=== PATIENT | female | born 1985 | race Caucasian/White ===

== ENCOUNTER 2022-07-04 09:18 | Emergency (ER) | payer OTHER, BC, MEDICAID ==
[~2022-07-04] VITALS: Ht 162.6 cm; Wt 63.5 kg
[~2022-07-04 09:18] MED LIST: IBUP-2077 PO; PREN1TAB80 PO
[2022-07-04 09:47] LABS: BASOPHILS % (AUTO) 1.1 % (0.0-5.0); EOSINOPHILS % (AUTO) 1.1 % (0.0-8.0); HEMATOCRIT 36.3 % (36-48); MEAN CORPUSCULAR HEMOGLOBIN 31.5 pg (27.0-33.0); MEAN CORPUSCULAR HGB CONC 33.3 g/dL (32.0-36.0); MEAN CORPUSCULAR VOLUME 94.5 fL (79-99); MONOCYTES % (AUTO) 7.1 % (3.0-13.0); NEUTROPHILS % (AUTO) 55.4 % (40.0-77.0); PLATELET COUNT (AUTO) 318 K/uL (130-400); RED BLOOD CELL COUNT(AUTO) 3.84 MIL/uL (4.00-5.50); RED CELL DISTRIBUTION WIDTH 12.6 % (11.0-15.5); WHITE BLOOD COUNT (AUTO) 6.5 K/uL (4.8-10.8)
[2022-07-04 09:57] LABS: CREATININE 0.7 mg/dL (0.5-1.5); POTASSIUM 4.4 mmol/L (3.5-5.1)
[2022-07-04 10:01] LABS: APPEARANCE,URINE CLEAR (CLEAR); BILIRUBIN,URINE NEGATIVE (NEGATIVE); COLOR,URINE LIGHT-YELLOW (YELLOW); GLUCOSE, URINE (UA) NEGATIVE (NEGATIVE); KETONES,URINE NEGATIVE (NEGATIVE); LEUKOCYTE ESTERASE ,URINE NEGATIVE Leu/uL (NEGATIVE); NITRATE,URINE NEGATIVE (NEGATIVE); OCCULT BLOOD,URINE LARGE (NEGATIVE); PH,URINE 5.5 (5.0-8.0); PROTEIN,URINE NEGATIVE (NEGATIVE); UROBILINOGEN,URINE 0.2 mg/dL (0.2-1.0)
[2022-07-04 10:01] LABS: ALBUMIN 3.6 g/dL (3.5-5.0); TOTAL PROTEIN, SERUM 7.2 g/dL (6.0-8.3)
[2022-07-04 10:06] LABS: HCG,QUALITATIVE URINE NEGATIVE (NEGATIVE)
[2022-07-04 10:17] LABS: BACTERIA,URINE RARE /HPF (None Seen); MUCUS,URINE RARE LPF (None Seen); RBC,URINE TNTC /HPF (0-1); SQUAMOUS EPITHELIAL CELL,UR RARE /HPF (0-2)
[2022-07-04] MEDS ORDERED: MEDR10TA PO (12:04)
[2022-07-04 12:14] VITALS: BP 132/91
== END 2022-07-04 12:15 | disposition home or self-care (01) ==
LOC: EDH 09:18
DX: N93.8 Other specified abnormal uterine and vaginal bleeding (principal); N83.201 Unspecified ovarian cyst, right side; Z90.89 Acquired absence of other organs; Z98.890 Other specified postprocedural states; Z88.8 Allergy status to other drugs, medicaments and biological substances
CPT/HCPCS: 36415; 76856; 80053; 81001; 81025; 85025; 87088

== ENCOUNTER 2024-04-09 14:31 | Emergency (ER) | payer BC, MEDICAID, OTHER ==
[~2024-04-09] VITALS: Ht 162.6 cm; Wt 63.5 kg
[~2024-04-09 14:31] MED LIST changes: +MEDR10TA PO
[2024-04-09] MEDS: dexaMETHasone SOD PHOSPHATE 4 MG/ML 1ML VIAL IM ONE (16:09)
[2024-04-09] MEDS: DiphenhydrAMINE HCL 25 MG CAPSULE PO ONE (16:09)
[2024-04-09] MEDS: FAMOTIDINE 20MG TAB PO ONE (16:09)
[2024-04-09 16:32] LABS: BASOPHILS # (AUTO) 0.08 K/uL (0.00-0.20); EOSINOPHILS # (AUTO) 0.12 K/uL (0.00-0.70); EOSINOPHILS % (AUTO) 1.6 % (0.0-8.0); HEMATOCRIT 37.7 % (36-48); IMMATURE GRANULOCYTE ABSOLUTE 0.02 K/uL (0-1); LYMPHOCYTES # (AUTO) 2.2 K/uL (1.0-4.8); LYMPHOCYTES % (AUTO) 28.2 % (21.0-51.0); MEAN CORPUSCULAR HEMOGLOBIN 26.7 pg (27.0-33.0); MEAN CORPUSCULAR HGB CONC 32.1 g/dL (32.0-36.0); MEAN CORPUSCULAR VOLUME 83.2 fL (79-99); MONOCYTES # (AUTO) 0.7 K/uL (0.1-1.0); MONOCYTES % (AUTO) 8.8 % (3.0-13.0); NEUTROPHILS # (AUTO) 4.6 K/uL (1.8-7.7); NEUTROPHILS % (AUTO) 60.1 % (40.0-77.0); PLATELET COUNT (AUTO) 375 K/uL (130-400); RED BLOOD CELL COUNT(AUTO) 4.53 MIL/uL (4.00-5.50); RED CELL DISTRIBUTION WIDTH 18.8 % (11.0-15.5); WHITE BLOOD COUNT (AUTO) 7.7 K/uL (4.8-10.8)
[2024-04-09 16:40] LABS: POTASSIUM 4.3 mmol/L (3.5-5.1)
[2024-04-09] MEDS ORDERED: FAMO-136 PO (18:52)
[2024-04-09] MEDS ORDERED: DIPH25CA85 PO (18:52)
--- NOTE | 2024-04-09 19:09 | ERN ---
ED Note History of Present Illness Stated Complaint: RASH Chief Complaint: Skin Rash/Abscess Time Seen by MD: 14:44 Time Seen by Midlevel: 18:50 Dictation: Ms Pena is a 38-year-old female with no reported chronic health issues who presented to the emergency department for evaluation of a rash. She states that approximately two weeks ago she developed a sore throat which she thought was strep but it resolved in two days so she never had it evaluated. Shortly after that she started with a rash to her lower back which has expanded to include almost the entirety of her body. There is sparing of the soles of her feet, palms of her hand, and peritoneum. She states it is quite itchy. She denies having fever, chills, shortness of breath, cough, chest pain, palpitations, edema, abdominal pain, nausea, vomiting, diarrhea, dysuria, headache, or dizziness. She states that she has not received a chickenpox vaccine and that she has had chicken pox x2. She states she has also had several episodes of shingles. 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 She has been using topical Benadryl as well as hydrocortisone creams. Allergies: Coded Allergies: Sulfa (Sulfonamide Antibiotics) (Unverified Allergy, Unknown, 04/09/24) carbamazepine (Verified Allergy, Unknown, 04/09/24) Home Meds Active Scripts Medroxyprogesterone Acetate (Provera) 10 Mg Tablet, 10 MG PO DAILY for 10 Days, #10 TAB 10 Refills Prov:KAVITA DOSHI MD 07/04/22 Ibuprofen (Ibuprofen 800 mg Tab) 800 Mg Tab, 800 MG PO Q6H PRN for PAIN, #90 TAB Prov:MARCO A BUSTILLO MD 08/10/14 Reported Medications Vits W-Ca,Fe,FA(<1Mg) ( Vitamins) 1 Each Tablet, 1 EACH PO DAILY, TAB 05/30/14 Past Medical History Past Medical History: Other Additional Past Medical Hx: Post ecalampsia Surgical History: None Surgical History Other: D AND C PSYCH History: no pertinent psych hx Social History: Negative, Lives with family RN Note Reviewed/Agreed w/PFSH: Yes Review of System Dictation REVIEW OF SYSTEMS: CONSTITUTIONAL: Patient denies fevers, chills, sweats and weight changes. EYES: Patient denies any visual symptoms. EARS, NOSE, AND THROAT: No difficulties with hearing. No symptoms of rhinitis or sore throat. CARDIOVASCULAR: Patient denies chest pains, palpitations, orthopnea and paroxysmal nocturnal dyspnea. RESPIRATORY: No dyspnea on exertion, no wheezing or cough. GI: No nausea, vomiting, diarrhea, constipation, abdominal pain, hematochezia or melena. : No urinary hesitancy or dribbling. No nocturia or urinary frequency. No abnormal urethral discharge. MUSCULOSKELETAL: No myalgias or arthralgias. NEUROLOGIC: No chronic headaches, no seizures. Patient denies numbness, tingling or weakness. PSYCHIATRIC: Patient denies problems with mood disturbance. No problems with anxiety. ENDOCRINE: No excessive urination or excessive thirst. DERMATOLOGIC: Reports ongoing rash for the past two weeks now to the entirety of her body. Some lesions are fluid-filled while others are crusted over. She reports that lesions are itchy. She has been taking topical Benadryl and hydrocortisone creams. Initial Vital Sign VS Vital Signs Date Time Temp Pulse Resp B/P (MAP) Pulse Ox O2 Delivery O2 Flow Rate FiO2 04/09/24 14:36 98.8 86 20 137/99 96 Room Air 0 04/09/24 15:03 21 Physical Exam Dictation Vital signs: Reviewed. Afebrile Constitutional: No acute distress. Non-toxic appearing. Head/Face: Normocephalic, atraumatic. Eyes: Periorbital areas with no swelling, redness, or edema. Lids and lashes are normal. Conjunctival injection is absent. Sclera anicteric. Pupils equal, round, reactive to light. ENT: Pinnas intact and no signs of trauma or erythema. Ear canals clear and no discharge. TMs no erythema. No nasal discharge or bleeding noted. Oropharynx with no exudate, redness, swelling, masses, exudates, or evidence of obstruction. Uvula midline. Mucous membranes moist. Neck: Trachea midline, no masses palpated, and no cervical lymphadenopathy. No swelling. Supple, full range of motion. Chest/Axilla: No tenderness, no crepitus, no paradoxical movement, no retractions. Cardiovascular: Regular rate, regular rhythm, no murmur, no gallops. Symmetric pulses. No peripheral edema. Respiratory: Respirations even and unlabored. Lung sounds clear; no wheezes, rales or rhonchi. Room air SpO2 98%. Gastrointestinal: Inspection is normal. No distention is appreciated. Bowel soun ds are normal. No mass or organomegaly . There is no tenderness. No rebound. No rigidity. No voluntary or involuntary guarding. No Penn's sign. Neurological: Normal speech, gross motor function intact, gross sensory function intact. No focal weakness/Paresthesia. Musculoskeletal/Extremities: All extremities have full range of motion, no pain or tenderness on palpation. Symmetric pulses. Integumentary: Skin is normal color, warm and dry. Cap refill less than 3 seconds. She has maculopapular rash to near entirety of body. Some are crusted and itch. there is sparing of the soles of feet, palms of hands and perinesum. Results (Laboratory/Radiology) Laboratory/Radiology Laboratory Tests Test 04/09/24 16:25 White Blood Count 7.7 K/uL (4.8-10.8) Red Blood Count 4.53 MIL/uL (4.00-5.50) Hemoglobin 12.1 g/dL (12.0-16.0) Hematocrit 37.7 % (36-48) Mean Corpuscular Volume 83.2 fL (79-99) Mean Corpuscular Hemoglobin 26.7 pg (27.0-33.0) L Mean Corpuscular Hemoglobin Concent 32.1 g/dL (32.0-36.0) Red Cell Distribution Width 18.8 % (11.0-15.5) H Platelet Count 375 K/uL (130-400) Mean Platelet Volume 8.8 fL (7.5-10.5) Immature Granulocyte % (Auto) 0.3 % (0-1) Neutrophils (%) (Auto) 60.1 % (40.0-77.0) Lymphocytes (%) (Auto) 28.2 % (21.0-51.0) Monocytes (%) (Auto) 8.8 % (3.0-13.0) Eosinophils (%) (Auto) 1.6 % (0.0-8.0) Basophils (%) (Auto) 1.0 % (0.0-5.0) Neutrophils # (Auto) 4.6 K/uL (1.8-7.7) Lymphocytes # (Auto) 2.2 K/uL (1.0-4.8) Monocytes # (Auto) 0.7 K/uL (0.1-1.0) Eosinophils # (Auto) 0.12 K/uL (0.00-0.70) Basophils # (Auto) 0.08 K/uL (0.00-0.20) Absolute Immature Granulocyte (auto 0.02 K/uL (0-1) Nucleated Red Blood Cells 0.0 % (0.0-0.19) Red Blood Cell Morphology See comments Sodium Level 141 mmol/L (136-145) Potassium Level 4.3 mmol/L (3.5-5.1) Chloride Level 104 mmol/L (101-111) Carbon Dioxide Level 30 mmol/L (21-32) Blood Urea Nitrogen 12 mg/dL (7-18) Creatinine 1.0 mg/dL (0.5-1.0) Glomerular Filtration Rate Calc 74 mL/min (>90) Random Glucose 82 mg/dL (70-105) Total Calcium 8.8 mg/dL (8.5-10.1) Labs Reviewed?: Yes ED Course ED Course Orders Procedure Category Date Status Time Cbc With Differential LAB 04/09/24 Complete 15:45 Basic Metabolic Panel LAB 04/09/24 Complete 15:45 Dexamethasone 4mg/Ml PHA 04/09/24 Complete 1ml Vial (Dexametha 16:00 Diphenhydramine Hcl PHA 04/09/24 Complete (Benadryl Cap) 16:00 Famotidine 20mg Tab PHA 04/09/24 Complete (Pepcid 20mg Tab) 16:00 Current Medications Medications (Trade) Dose Ordered Sig/Severino Route PRN Reason Start Time Stop Time Status Last Admin Dose Admin Dexamethasone Sodium Phosphate (dexaMETHasone 4MG/ML 1ML VIAL) 10 mg ONCE ONCE IM 04/09/24 16:00 04/09/24 16:01 DC 04/09/24 16:09 Diphenhydramine HCl (BENAdryl CAP) 25 mg ONCE ONCE PO 04/09/24 16:00 04/09/24 16:01 DC 04/09/24 16:09 Famotidine (Pepcid 20mg Tab) 20 mg ONCE ONCE PO 04/09/24 16:00 04/09/24 16:01 DC 04/09/24 16:09 Vital Signs Date Time Temp Pulse Resp B/P (MAP) Pulse Ox O2 Delivery O2 Flow Rate FiO2 04/09/24 15:03 98.8 86 16 135/95 98 Room Air* 0 21 04/09/24 14:36 98.8 86 20 137/99 96 Room Air 0 Vital signs remained stable; afebrile with room air SpO2 98%. No change in appearance of lesions. No open wounds. Laboratory findings as noted below. CBC with no elevation of WBCs. No electrolyte derangement. She received doses Pepcid, Benadryl, and dexamethasone. Recommend referral to picker tender helper for further evaluation. Medical Decision Making MDM MDM: Differential diagnosis: Viral exanthem, chickenpox, shingles, cellulitis Rationale: Tests considered and ordered secondary to shared decision making include: Previous outside records reviewed: Old ER visits. Risk of complication and/or morbidity or mortality of patient management: None Medications-Per medication reconciliation Need for hospitalization: Patient does not meet criteria for hospitalization. Need for emergency major/minor surgery: No There are no social concerns with this patient. Examination, labs Prescription drug management: Benadryl, Pepcid Prescriptions will include symptomatic care Patient's prior external medical records from other ER visits were reviewed by me as indicated. Prior testing and results from previous visits were reviewed. Prior tests were taken into account with medical decision making and resource utilization, independent historian/historians were used to obtain complete medical history. I independently interpreted the test that were performed, results were reviewed by me and considered findings on radiology if ordered. Medical management and examination interpretation discussions were had by me with other qualified healthcare professionals as indicated for the patient's care. DX & DISP Disposition: Discharge Departure Impression: Primary Impression: Maculopapular rash, generalized Additional Impression: Exanthem Condition: Stable Scripts Diphenhydramine HCl (Benadryl) 25 Mg Capsule 25 MG PO q8 hours PRN, #15 CAP Prov: BLESSING CURRY PASS WORKER 04/09/24 Famotidine (Pepcid) 20 Mg Tablet 20 MG PO DAILY, #14 TAB Prov: BLESSING CURRY PASS WORKER 04/09/24 Additional Instructions: Rest. Drink plenty of fluids. Continue Benadryl as needed for itching as well as Pepcid 20 mg daily. You received an IM dose of steroids here in the emergency department long lasting. Recommend follow up with picker tender helper as soon as possible. Return to the emergency department for any worsening of symptoms or concerns. Referrals: SELF,REFERRAL (PCP) ASHLYN MOYA MD Time of Disposition: 19:08 BLESSING CURRY NP Apr 09, 2024 19:09
--- NOTE | 2024-04-09 19:10 | NUR ---
PT CARE ASSUMED AT THIS TIME
[2024-04-09 19:50] VITALS: BP 131/86; PULSE 74; RESP 20; TEMP 98.8; O2SAT 96
== END 2024-04-09 19:53 | disposition home or self-care (01) ==
LOC: EDH 14:31
DX: R21 Rash and other nonspecific skin eruption (principal); Z88.2 Allergy status to sulfonamides; Z79.899 Other long term (current) drug therapy
CPT/HCPCS: 99283; 80048; 85025; 36415; 96372; J1100; Q0163